=== PATIENT | female | born 1940 | race Caucasian/White ===

== ENCOUNTER 2016-07-08 02:55 | Emergency (ER) | payer MEDICARE, OTHER ==
[~2016-07-08] VITALS: Ht 160 cm; Wt 86.0 kg
[~2016-07-08 02:55] MED LIST: AMLO-147 PO; ASPI-664 PO; DEXL60CA2 PO; DIAZ10TA4 PO; ESCI20TA PO; METH750T2 PO; MIRA25TA PO; NEBI5TAB9 PO; OXYC-209 PO; SULF500T45 PO; SUMA100T9 PO; SYN75 PO; VALS1TAB82 PO; ZOLP10TA5 PO
--- NOTE | 2016-07-08 03:05 | ERA ---
ER Documentation Chief Complaint Date/Time DATE: 07/08/16 TIME: 03:04 Chief Complaint Right flank pain HPI The patient is a 75-year-old female, presenting to the ER because of right flank pain for the last 3-4 hours. She had similar symptoms previously. He denies fever, chills, neck pain, chest pain, nausea, vomiting, dysuria, diarrhea. She does not smoke nor drink Past medical history: Migraine, hypertension, depression, hypothyroidism, chronic low back Past surgical history: Multiple back surgery, bilateral shoulder surgery, left knee replacement, breast implant ROS All systems reviewed and are negative except as per history of present illness. Medications Home Meds Active Scripts Hydrocodone/Acetaminophen ([place] 5-325 Tablet) 1 Each Tablet, 1 TAB PO Q6H Y for PAIN, #7 TAB Prov:DRE GLEZ MD 07/08/16 Levofloxacin* (Levaquin*) 750 Mg Tablet, 750 MG PO DAILY for 10 Days, TAB Prov:DRE GLEZ MD 07/08/16 Reported Medications Sumatriptan Succinate* (Imitrex*) 100 Mg Tablet, 100 MG PO BID Y for MIGRAINE HEADACHE, TAB May repeat after 2 hours if needed; MAX 200 mg/24 hours 12/20/15 Aspirin (Low Dose Aspirin) 81 Mg Tablet., 81 MG PO DAILY, #30 TAB 12/20/15 Zolpidem Tartrate* (Zolpidem Tartrate*) 10 Mg Tablet, 10 MG PO QHS Y for INSOMNIA, #30 TAB 12/20/15 Methocarbamol* (Methocarbamol*) 750 Mg Tablet, 750 MG PO BID, TAB 12/20/15 Sulfasalazine (Azulfidine) 500 Mg Tab, 1000 MG PO BID, #120 TAB 12/20/15 Valsartan-Hydrochlorothiazide (Valsartan-HCTZ) 320-25 Mg Tablet, 1 TAB PO DAILY , #30 TAB 12/20/15 Oxycodone HCl/Acetaminophen (Percocet 10-325 mg Tablet) 1 Each Tablet, 1 EACH PO PRN, TAB 12/20/15 Diazepam* (Diazepam*) 10 Mg Tablet, 10 MG PO PRN, TAB 12/20/15 Dexlansoprazole (Dexilant) 60 Mg Jimmy., 60 MG PO DAILY, #30 CAP 12/20/15 Amlodipine Besylate* (Amlodipine Besylate*) 10 Mg Tablet, 10 MG PO DAILY Y for ELEVATED BLOOD PRESSURE, #30 TAB ONLY IF BLOOD PRESSURE IS OVER 160 12/20/15 Levothyroxine Sodium* (Synthroid*) 75 Mcg Tablet, 75 MCG PO BEFORE BREAKFAST, # 30 TAB 12/20/15 Mirabegron (Mybetriq) 25 Mg Tab.er.24h, 25 MG PO DAILY, TAB 12/20/15 Escitalopram Oxalate* (Lexapro*) 20 Mg Tablet, 20 MG PO DAILY, #30 TAB 12/20/15 Nebivolol* (Bystolic*) 5 Mg Tab, 5 MG PO BID, #30 TAB 12/20/15 Allergies Allergies: Coded Allergies: No Known Allergy (Unverified , 12/20/15) PMhx/Soc History of Surgery: Yes (Mutliple back surgeries, 3 rotator cuff surgeries, left knee replacement, ) Anesthesia Reaction: No Hx Neurological Disorder: Yes (Frequent migranes) Hx Respiratory Disorders: Yes Hx Cardiac Disorders: Yes (HTN) Hx Psychiatric Problems: Yes (PTSD, depression, ) Hx Alcohol Use: Yes (wine occasionally) Hx Substance Use: No Hx Tobacco Use: No Physical Exam Vitals Vital Signs Date Time Temp Pulse Resp B/P Pulse Ox O2 Delivery O2 Flow Rate FiO2 07/08/16 05:09 70 18 142/76 97 Room Air 07/08/16 04:00 61 15 135/87 97 Nasal Cannula 2.0 07/08/16 03:40 98.1 62 16 150/85 97 Room Air 07/08/16 03:06 99.3 86 24 183/97 97 Physical Exam Const: No acute distress. Head: Atraumatic. Eyes: Normal Conjunctiva. ENT: Normal External Ears, Nose and Mouth. Neck: Full range of motion. No meningismus. Resp: Clear to auscultation bilaterally. Cardio: Regular rate and rhythm, no murmurs. Abd: Soft, non distended, normal bowel sounds, non tender. Skin: No petechiae or rashes. Back: No midline or flank tenderness. Ext: No cyanosis, or edema. Neur: Awake and alert. No focal deficit Psych: Normal Mood and Affect. Result Diagram: 07/08/1630907/08/16 031 Results 24 hrs Laboratory Tests Test 07/08/16 03:10 07/08/16 04:38 White Blood Count 4.110^3/ul Red Blood Count 3.5610^6/ul Hemoglobin 10.5g/dl Hematocrit 32.3% Mean Corpuscular Volume 90.7fl Mean Corpuscular Hemoglobin 29.5pg Mean Corpuscular Hemoglobin Concent 32.5g/dl Red Cell Distribution Width 14.2% Platelet Count 16097^3/UL Mean Platelet Volume 10.7fl Neutrophils % 44.5% Lymphocytes % 39.2% Monocytes % 11.5% Eosinophils % 3.9% Basophils % 0.7% Nucleated Red Blood Cells % 0.0/100WBC Neutrophils # 1.810^3/ul Lymphocytes # 1.610^3/ul Monocytes # 0.510^3/ul Eosinophils # 0.210^3/ul Basophils # 0.010^3/ul Nucleated Red Blood Cells # 0.010^3/ul Prothrombin Time 12.7Sec Prothrombin Time Ratio 1.0 INR International Normalized Ratio 0.95 Activated Partial Thromboplast Time 26.6Sec Sodium Level 140mmol/L Potassium Level 3.9mmol/L Chloride Level 103mmol/L Carbon Dioxide Level 27mmol/L Anion Gap 14 Blood Urea Nitrogen 8mg/dl Creatinine 0.68mg/dl Glucose Level 93mg/dl Calcium Level 9.1mg/dl Total Bilirubin 0.1mg/dl Direct Bilirubin 0.00mg/dl Indirect Bilirubin 0.1mg/dl Aspartate Amino Transf (AST/SGOT) 24IU/L Alanine Aminotransferase (ALT/SGPT) 23IU/L Alkaline Phosphatase 106IU/L Total Protein 7.3g/dl Albumin 4.4g/dl Globulin 2.90g/dl Albumin/Globulin Ratio 1.51 Lipase 80U/L Bedside Urine pH (LAB) 7.0 Bedside Urine Protein (LAB) Negative Bedside Urine Glucose (UA) Negative Bedside Urine Ketones (LAB) Negative Bedside Urine Blood Negative Bedside Urine Nitrite (LAB) Negative Bedside Urine Leukocyte Esterase (L Negative Current Medications Medications (Trade) Dose Ordered Sig/Pamella Route PRN Reason Start Time Stop Time Status Last Admin Dose Admin Morphine Sulfate (morphine) 4 mg ONCE STAT IV 07/08/16 03:09 07/08/16 03:10 DC 07/08/16 03:13 Ondansetron HCl (Zofran Inj) 4 mg ONCE STAT IV 07/08/16 03:09 07/08/16 03:10 DC 07/08/16 03:12 Hydromorphone HCl (Dilaudid) 1 mg ONCE STAT IV 07/08/16 03:23 07/08/16 03:24 DC 07/08/16 03:26 Procedures/MDM [place] [address] Radiology Main Line: [phone] DIAGNOSTIC IMAGING REPORT Patient: JINA FORRESTER : 1940 Age: 75 Sex: F MR #: [id number] DOS: 07/08/16 0313 Ordering MD: DRE GLEZ MD Location: E/R Room/Bed: PROCEDURE: CT ABDOMEN/PELVIS WITHOUT CONTRAST CLINICAL INDICATION: 75-year-old female with abdominal pain. The patient has a history of prior hysterectomy. TECHNIQUE: The study was performed utilizing a [employer] VCT 64-slice CT scanner. Direct axial sections were obtained through the abdomen and pelvis without the use of intravenous contrast material. Sagittal and coronal reformations were obtained. One or more of the following dose reduction techniques were utilized: automated exposure control, adjustment of the mA and/ or kV according to patient's size or use of iterative reconstruction technique. The images were reviewed on a PACS workstation. CTD/vol = 22.0 mGy; Total Exam DLP = 1216.0 mGy-cm. COMPARISON: CT chest/abdomen/pelvis December 20, 2015. FINDINGS: The inferior aspects of peripherally calcified bilateral breast implants are noted. There is a partially visualized minimal peripheral infiltrate within the lateral segment of the right middle lobe seen on axial image 3-3. There is minimal bibasilar subsegmental atelectasis. There is no evidence for significant pleural effusion. The liver has a normal size and contour without focal areas of abnormal density. No intrahepatic nor extrahepatic biliary ductal dilatation is seen. The gallbladder demonstrates no wall thickening nor pericholecystic fluid. No biliary stones are evident. The pancreas is without areas of abnormal attenuation. The spleen is identified and has a normal size without abnormal density. The adrenal glands are unremarkable. The kidneys are without abnormal density. No hydroureteronephrosis nor nephroureterolithiasis is evident. The urinary bladder contains urine. There is mild retained stool within the colon without obstruction. There are several scattered diverticula within the colon without evidence for surrounding inflammatory changes. The appendix is diminutive and is without abnormal thickening or surrounding inflammatory reaction. The uterus is not visualized consistent with prior hysterectomy. There is trace pelvic free fluid. The aortoiliac vessels are minimally calcified and ectatic but without aneurysmal dilatation. There is again identified evidence for prior thoracolumbar fusion extending from T10 through S1. There are pedicles screws and rods extending from T10 through L3. The L4, L5 and S1 pedicle screws appear to been removed with ghosting identified. IMPRESSION: 1. Minimal small peripheral right middle lobe infiltrate. 2. Mild retained stool without obstruction. 3. Colonic diverticulosis. 4. No CT evidence for appendicitis. 5. Status post hysterectomy. 6. Trace free fluid. 7. Bilateral calcified breast implants. 8. Thoracolumbar fusion from T10 through S1. .James Mejia MD, MD Date Time Electronically viewed and signed by .James Mejia MD, MD on 07/08/2016 04:23 .M/ CC: DRE GLEZ MD MEDICAL MAKING DECISION: The patient is a 75-year-old female, presenting with acute right flank pain of unclear etiology and acute right middle lobe pneumonia on CT scan. She was treated with morphine 4 mg IV, Dilaudid 1 mg IV for pain and Zofran 4 mg IV for nausea with good response. The differential diagnoses considered include but are not limited to cholelithiasis, cholecystitis, cystitis, pancreatitis, hepatitis, gastritis, peptic ulcer disease, gastric ulcer, appendicitis, diverticulitis, cholangitis, choledocholithiasis, partial small bowel obstruction. Departure Diagnosis: Primary Impression: Right flank pain Additional Impression: Pneumonia Condition: Good Comments She was discharged with Levaquin and [place] I discussed the findings with the patient. I advised the patient to follow-up with the primary physician in about 1-2 days, sooner if needed and return if any concern. DRE GLEZ MD Jul 08, 2016 03:05
[2016-07-08 03:06] VITALS: Ht 160 cm; Wt 86.0 kg
[2016-07-08] MEDS ORDERED: ONDANSETRON 4 MG INJ IV STA (03:09)
[2016-07-08] MEDS ORDERED: morphine 4 MG/ML VIAL IV STA (03:09)
[2016-07-08 03:20] LABS: ADD SCAN DIFF NO
[2016-07-08 03:21] LABS: BASOPHILS % 0.7 % (0.0-2.0); EOSINOPHILS # 0.2 10^3/ul (0.0-0.5); EOSINOPHILS % 3.9 % (0.0-7.0); HEMATOCRIT 32.3 % (37.0-47.0); HEMOGLOBIN 10.5 g/dl (12.0-16.0); LYMPHOCYTES # 1.6 10^3/ul (0.8-2.9); LYMPHOCYTES % 39.2 % (15.0-51.0); MEAN CORPUSCULAR HEMOGLOBIN 29.5 pg (29.0-33.0); MEAN CORPUSCULAR HGB CONC 32.5 g/dl (32.0-37.0); MEAN CORPUSCULAR VOLUME 90.7 fl (82.0-101.0); MEAN PLATELET VOLUME 10.7 fl (7.4-10.4); MONOCYTE # 0.5 10^3/ul (0.3-0.9); MONOCYTES % 11.5 % (0.0-11.0); NEUTROPHIL # 1.8 10^3/ul (1.6-7.5); NEUTROPHILS % 44.5 % (39.0-77.0); PLATELET COUNT 245 10^3/UL (140-415); RED BLOOD COUNT 3.56 10^6/ul (4.20-5.40); RED CELL DISTRIBUTION WIDTH 14.2 % (11.5-14.5); WHITE BLOOD COUNT 4.1 10^3/ul (4.8-10.8)
[2016-07-08] MEDS ORDERED: HYDROmorphONE 1 MG/ML SYG IV STA (03:23)
[2016-07-08 03:30] LABS: INR 0.95; PROTIME 12.7 Sec (12.2-14.2)
[2016-07-08 03:31] LABS: ALBUMIN 4.4 g/dl (3.3-4.9); PARTIAL THROMBOPLASTIN TIME 26.6 Sec (25.0-35.0); POTASSIUM 3.9 mmol/L (3.5-5.1)
[2016-07-08 03:33] LABS: BILIRUBIN,INDIRECT 0.1 mg/dl (0-1.1); BILIRUBIN,TOTAL 0.1 mg/dl (0.2-1.3); CREATININE 0.68 mg/dl (0.44-1.00)
[2016-07-08 03:34] LABS: ALBUMIN/GLOBULIN RATIO 1.51; CALCIUM 9.1 mg/dl (8.4-10.2); TOTAL PROTEIN 7.3 g/dl (6.1-8.1)
[2016-07-08 03:40] VITALS: TEMP 98.1
--- NOTE | 2016-07-08 04:23 | RADRPT ---
PROCEDURE: CT ABDOMEN/PELVIS WITHOUT CONTRAST CLINICAL INDICATION: 75-year-old female with abdominal pain. The patient has a history of prior h ysterectomy. TECHNIQUE: The study was performed utilizing a [employer] V[employer] 64-slice CT scanner. Direct axia l sections were obtained through the abdomen and pelvis without the use of intravenous contrast mate rial. Sagittal and coronal reformations were obtained. One or more of the following dose reduction t echniques were utilized: automated exposure control, adjustment of the mA and/or kV according to pat ient's size or use of iterative reconstruction technique. The images were reviewed [facility] a [facility]. CTD/vol = 22.0 mGy; Total Exam DLP = 1216.0 mGy-cm. COMPARISON: CT chest/abdomen/pelvis December 20, 2015. FINDINGS: The inferior aspects of peripherally calcified bilateral breast implants are noted. There is a part ially visualized minimal peripheral infiltrate within the lateral segment of the right middle lobe s een on axial image 3-3. There is minimal bibasilar subsegmental atelectasis. There is no evidence for significant pleural effusion. The liver has a normal size and contour without focal areas of ab normal density. No intrahepatic nor extrahepatic biliary ductal dilatation is seen. The gallbladder demonstrates no wall thickening nor pericholecystic fluid. No biliary stones are evident. The pancre as is without areas of abnormal attenuation. The spleen is identified and has a normal size without abnormal density. The adrenal glands are unremarkable. The kidneys are without abnormal density. No hydroureteronephrosis nor nephroureterolithiasis is evident. The urinary bladder contains urine. Th ere is mild retained stool within the colon without obstruction. There are several scattered diverticula within the colon without evidence for surrounding inflammatory changes. The appendix is diminutive and is without abnormal thickening or surrounding inflammatory reaction. The uterus is no t visualized consistent with prior hysterectomy. There is trace pelvic free fluid. The aortoiliac vessels are minimally calcified and ectatic but without aneurysmal dilatation. There is again identi fied evidence for prior thoracolumbar fusion extending from T10 through S1. There are pedicles scre ws and rods extending from T10 through L3. The L4, L5 and S1 pedicle screws appear to been removed with ghosting identified. IMPRESSION: 1. Minimal small peripheral right middle lobe infiltrate. 2. Mild retained stool without obstruction. 3. Colonic diverticulosis. 4. No CT evidence for appendicitis. 5. Status post hysterectomy. 6. Trace free fluid. 7. Bilateral calcified breast implants. 8. Thoracolumbar fusion from T10 through S1. .James Mejia MD, Date Time Electronically viewed and signed by .James Mejia MD, MD on 07/08/2016 04:23 .M/
[2016-07-08 04:40] LABS: URINE BLOOD (Dip) POC Negative (NEGATIVE)
[2016-07-08] MEDS ORDERED: LEVO750T25 PO (04:52)
[2016-07-08] MEDS ORDERED: HYDR-906 PO (04:53)
[2016-07-08 05:09] VITALS: BP 142/76; PULSE 70; RESP 18
== END 2016-07-08 05:10 | disposition home or self-care (01) ==
LOC: E/R 02:55
DX: R10.9 Unspecified abdominal pain (principal); J18.9 Pneumonia, unspecified organism; I10 Essential (primary) hypertension; E03.9 Hypothyroidism, unspecified; R11.0 Nausea; Z96.652 Presence of left artificial knee joint; Z79.82 Long term (current) use of aspirin
CPT/HCPCS: 36415; 74176; 80053; 81003; 83690; 85025; 85610; 85730; 96374; 96375; 99285; J1170; J2270; J2405

== ENCOUNTER 2016-07-18 12:54 | Emergency (ER) | payer MEDICARE, OTHER ==
[~2016-07-18] VITALS: Ht 165.1 cm; Wt 86.0 kg
[~2016-07-18 12:54] MED LIST changes: +HYDR-906 PO; +LEVO750T25 PO
[2016-07-18 12:58] VITALS: Ht 165.1 cm; Wt 86.0 kg
[2016-07-18] MEDS ORDERED: morphine 10 MG INJ IM ONE (14:00)
--- NOTE | 2016-07-18 14:12 | ERD ---
ER Documentation Chief Complaint Date/Time DATE: 07/18/16 TIME: 14:08 Chief Complaint RT FLANK WITH NAUSEA STARTED THIS MORNING HPI Patient is a 75-year-old female with chronic low back pain who presents with complaint of 1 day of worsening -sided low back pain. She reports that she had this pain 1 week ago when she came to the ER and was diagnosed with pneumonia. She reports being compliant with antibiotics which she has now stopped. She states that her pain got better during treatment, but got worse since this morning. She is on Percocet chronically, and states that she took her last pill this morning. Review of cures shows that the patient had a prescription for 180 tablets of 10 mg Percocet on June 30. Patient is being followed by pain management. The patient denies cough, fever, dysuria, hematuria, abdominal pain, vomiting. Patient states that she has had incontinence issues for years with no acute change. ROS All systems reviewed and are negative except as per history of present illness. Medications Home Meds Active Scripts Hydrocodone/Acetaminophen ([place] 5-325 Tablet) 1 Each Tablet, 1 TAB PO Q6H Y for PAIN, #7 TAB Prov:DRE GLEZ MD 07/08/16 Reported Medications Sumatriptan Succinate* (Imitrex*) 100 Mg Tablet, 100 MG PO BID Y for MIGRAINE HEADACHE, TAB May repeat after 2 hours if needed; MAX 200 mg/24 hours 12/20/15 Aspirin (Low Dose Aspirin) 81 Mg Tablet.dr, 81 MG PO DAILY, #30 TAB 12/20/15 Zolpidem Tartrate* (Zolpidem Tartrate*) 10 Mg Tablet, 10 MG PO QHS Y for INSOMNIA, #30 TAB 12/20/15 Methocarbamol* (Methocarbamol*) 750 Mg Tablet, 750 MG PO BID, TAB 12/20/15 Sulfasalazine (Azulfidine) 500 Mg Tab, 1000 MG PO BID, #120 TAB 12/20/15 Valsartan-Hydrochlorothiazide (Valsartan-HCTZ) 320-25 Mg Tablet, 1 TAB PO DAILY , #30 TAB 12/20/15 Oxycodone HCl/Acetaminophen (Percocet 10-325 mg Tablet) 1 Each Tablet, 1 EACH PO PRN, TAB 12/20/15 Diazepam* (Diazepam*) 10 Mg Tablet, 10 MG PO PRN, TAB 12/20/15 Dexlansoprazole (Dexilant) 60 Mg Jimmy., 60 MG PO DAILY, #30 CAP 12/20/15 Amlodipine Besylate* (Amlodipine Besylate*) 10 Mg Tablet, 10 MG PO DAILY Y for ELEVATED BLOOD PRESSURE, #30 TAB ONLY IF BLOOD PRESSURE IS OVER 160 12/20/15 Levothyroxine Sodium* (Synthroid*) 75 Mcg Tablet, 75 MCG PO BEFORE BREAKFAST, # 30 TAB 12/20/15 Mirabegron (Mybetriq) 25 Mg Tab.er.24h, 25 MG PO DAILY, TAB 12/20/15 Escitalopram Oxalate* (Lexapro*) 20 Mg Tablet, 20 MG PO DAILY, #30 TAB 12/20/15 Nebivolol* (Bystolic*) 5 Mg Tab, 5 MG PO BID, #30 TAB 12/20/15 Discontinued Scripts Levofloxacin* (Levaquin*) 750 Mg Tablet, 750 MG PO DAILY for 10 Days, TAB Prov:DRE GLEZ MD 07/08/16 Allergies Allergies: Coded Allergies: No Known Allergy (Unverified , 12/20/15) PMhx/Soc Past medical history: Chronic back pain, hypertension, hypothyroidism Past surgical history: Left knee, low back Social history: Denies alcohol or tobacco. History of Surgery: Yes (Mutliple back surgeries, 3 rotator cuff surgeries, left knee replacement, ) Anesthesia Reaction: No Hx Neurological Disorder: Yes (Frequent migranes) Hx Respiratory Disorders: Yes Hx Cardiac Disorders: Yes (HTN) Hx Psychiatric Problems: Yes (PTSD, depression, ) Hx Alcohol Use: Yes (wine occasionally) Hx Substance Use: No Hx Tobacco Use: No Smoking Status: Never smoker FmHx Family History: No coronary disease, No diabetes Physical Exam Vitals Vital Signs Date Time Temp Pulse Resp B/P Pulse Ox O2 Delivery O2 Flow Rate FiO2 07/18/16 15:30 98.2 83 20 155/85 100 Room Air 07/18/16 12:58 98.1 84 20 116/85 96 Physical Exam Const: Alert, dramatically expressing pain in an inconsistent manner. Head: Atraumatic Eyes: Normal Conjunctiva, no pallor or icterus, pupils equally round reactive ENT: Normal External Ears, Nose and Mouth. Moist mucous membranes Neck: Full range of motion. No meningismus. Resp: Clear to auscultation bilaterally, no wheezes, no rales Cardio: Regular rate and rhythm, no murmurs,2+ DP pulses bilaterally Abd: Soft, non tender, non distended. No CVA tenderness Skin: No petechiae or rashes Back: No midline tenderness. Right lumbar paraspinal muscle tenderness and spasm. Ext: No cyanosis, or edema Neur: Awake and alert, no saddle anesthesia, strength and sensation intact in all muscle groups in the lower extremities. Psych: Normal Mood and Affect Results 24 hrs Laboratory Tests Test 07/18/16 14:25 Urine Color YELLOW Urine Clarity CLEAR Urine pH 7.5 Urine Specific [place] 1.015 Urine Ketones NEGATIVE Urine Nitrite NEGATIVE Urine Bilirubin NEGATIVE Urine Urobilinogen 0.2 E.U./dL Urine Leukocyte Esterase TRACE Urine Microscopic RBC 5-10/HPF Urine Microscopic WBC 2-5/HPF Urine Squamous Epithelial Cells OCCASIONAL Urine Hemoglobin TRACE Urine Glucose NEGATIVE% Urine Total Protein NEGATIVE Current Medications Medications (Trade) Dose Ordered Sig/Pamella Route PRN Reason Start Time Stop Time Status Last Admin Dose Admin Morphine Sulfate (morphine) 8 mg ONCE ONCE IM 07/18/16 14:00 07/18/16 14:01 DC 07/18/16 13:56 Diazepam (Valium) 5 mg ONCE ONCE IV 07/18/16 15:00 07/18/16 15:01 DC 07/18/16 14:56 Procedures/MDM Patient is a 75-year-old female with recent diagnosis of pneumonia who presents to the ER with acute on chronic right-sided low back pain. She indicates that the pain is different from her usual low back pain and is closer to the costal margin. She denies trauma or injury, denies acute leg weakness or numbness or acute urinary symptoms. On exam the area of tenderness is actually in the lumbar spine. A chest x-ray and UA are unremarkable. Bedside ultrasound reveals no hydronephrosis and no AAA. Given the patient's 30 year history of back pain, lack of findings on UA or chest x-ray, benign abdominal exam, benign ultrasound, I believe the patient's symptoms are musculoskeletal in etiology. The symptoms started while the patient was in bed, which makes compression fracture unlikely, and there is no midline tenderness. The patient has a supply of Percocet at home, which have advised her to take. I advised her to follow-up with her pain management doctor tomorrow, and to return to the ER for any worsening pain, fever, weakness or numbness of the legs, or other concerns. Patient's behavior in the ER was inconsistent. She was quite dramatic in her initial complaint of pain and seemed to be very anxious about the recurrence of pneumonia. She responded well to Valium, appears comfortable at the time of discharge, did not have other associated symptoms such as shortness of breath, chest pain, abdominal pain, or dysuria. Departure Diagnosis: Primary Impression: Low back pain Chronicity: acute Back pain laterality: right Sciatica presence: without sciatica Qualified Code: M54.5 - Acute right-sided low back pain without sciatica Condition: Stable HANY IRIZARRY MD Jul 18, 2016 14:11
[2016-07-18 14:55] LABS: ADD UMIC YES; URINE BILIRUBIN (Dip) NEGATIVE (NEGATIVE); URINE BLOOD (Dip) TRACE (NEGATIVE); URINE COLOR YELLOW (YELLOW); URINE GLUCOSE (Dip) NEGATIVE (NEGATIVE); URINE KETONES (Dip) NEGATIVE (NEGATIVE); URINE LEUKOCYTE ESTERASE (Dip) TRACE (NEGATIVE); URINE NITRITE (Dip) NEGATIVE (NEGATIVE); URINE TOTAL PROTEIN (Dip) NEGATIVE (NEGATIVE); URINE UROBILINOGEN (Dip) 0.2 E.U./dL (0.1-1.0)
[2016-07-18] MEDS ORDERED: DIAZEPAM 5 MG/ML SYG IV ONE (15:00)
--- NOTE | 2016-07-18 15:05 | RADRPT ---
PROCEDURE: XR Chest. CLINICAL INDICATION: Shortness of breath. TECHNIQUE: Single frontal view. COMPARISON: 12/20/2015. FINDINGS: The lungs are clear. The heart size is normal. There is calcification in the aorta consistent with atherosclerosis. There is no pleural effusion or pneumothorax. There are bilateral peripherally calcified breast implants. There has been prior spine surgery with pedicle screws and connecting rods in the lower thoracic spine. IMPRESSION: 1. Clear lungs. 2. Bilateral breast implants. 3. Prior thoracic spine surgery. 4. Atherosclerosis. RPTAT: QQ .Yoshi Mascorro MD, MD Date Time Electronically viewed and signed by .Yoshi Mascorro MD, MD on 07/18/2016 15:05 .R/
[2016-07-18 15:30] VITALS: BP 155/85; PULSE 83; RESP 20; TEMP 98.2
[2016-07-18 15:32] LABS: SQUAMOUS EPITHELIAL CELL,UR OCCASIONAL
== END 2016-07-18 16:40 | disposition home or self-care (01) ==
LOC: E/R 12:54
DX: M54.5 Low back pain (principal); I10 Essential (primary) hypertension; E03.9 Hypothyroidism, unspecified; Z96.652 Presence of left artificial knee joint; Z79.82 Long term (current) use of aspirin
CPT/HCPCS: 71010; 81001; 81003; 96372; 96374; 99284; J2270; J3360

== ENCOUNTER → 2018-07-22 | Outpatient (CLI) | payer MEDICARE, OTHER ==
[~2018-07-22] MED LIST changes: -ASPI-664 PO; +ASPI81TA52 PO; +HYDR-4011 PO; -HYDR-906 PO; -LEVO750T25 PO; +LEVO75TA84 PO; +SUMA100T3 PO; -SUMA100T9 PO; -SYN75 PO
--- NOTE | 2018-07-23 17:36 | RADRPT ---
Vent Rate: 60 bpm RR Interval: 0 msec [place] Interval: 160 msec QRS Duration: 76 msec QT Interval: 416 msec QTC Interval: 416 msec P-R-T [place]: 42 - 47 - 50 degrees Normal sinus rhythm Normal ECG Electronically Signed By: Diego Ruth
== END | disposition home or self-care (01) ==
LOC: RAD 13:27
PROVIDERS: ATTEND Internal Medicine
DX: J20.9 Acute bronchitis, unspecified (principal); D64.9 Anemia, unspecified; S90.852A Superficial foreign body, left foot, initial encounter; X58.XXXA Exposure to other specified factors, initial encounter; R07.89 Other chest pain
CPT/HCPCS: 71046; 80048; 81001; 85025; 85610; 85730; 93005